=== PATIENT | female | born 1945 | race Caucasian/White ===

== ENCOUNTER 2016-11-13 13:20 | Outpatient (CLI) | payer MEDICARE ==
--- NOTE | 2016-11-13 15:39 | DIAGNOSTIC IMAGING REPORT ---
PROCEDURE: CT ABDOMEN/PELVIS W/O CONTRAST INDICATION: PELVIC PAIN TECHNIQUE: Noncontrast axial images were obtained of the entire abdomen and pelvis with sagittal and coronal reformations. COMPARISON: None. FINDINGS: ABDOMEN: Minor bibasilar dependent atelectasis. Heart size is normal. Hepatic steatosis. Cholecystectomy. Pancreas, spleen and adrenal glands are normal. Bilateral perinephric stranding. No calculi or hydronephrosis. Mild atherosclerosis of the aorta. Mild descending colon diverticulosis. PELVIS: Severe sigmoid diverticulosis with two areas of adjacent stranding in the mid and distal portion of the sigmoid colon consistent with two foci of diverticulitis. There is no abscess or free air. Midline ventral herniorrhaphy. Normal appendix. Hysterectomy. Normal bladder. Surgical clips around the bladder. Right hip arthroplasty. Moderate degenerative changes of the spine. IMPRESSION: 1. Severe sigmoid diverticulosis with two foci of inflammation consistent with diverticulitis. No abscess or free air 2. Hepatic steatosis 3. Cholecystectomy. hysterectomy, bladder surgery and herniorrhaphy 4. Results discussed with FREEMAN Parnell All CT scans at this facility use dose modulation, iterative reconstruction, and/or weight-based dosing when appropriate to reduce radiation dose to as low as reasonably achievable.
== END 2016-11-13 23:00 ==
LOC: LAB SRH 13:20
DX: R10.2 Pelvic and perineal pain (principal)
CPT/HCPCS: 90074; 90100; 95059

== ENCOUNTER 2016-11-15 10:22 | Outpatient (CLI) | payer MEDICARE | END 2016-11-15 23:00 | disposition home or self-care (01) | LOC: LAB SRH 10:22 | DX: K57.92 Diverticulitis of intestine, part unspecified, without perforation or abscess without bleeding (principal) | CPT/HCPCS: 90047; 90074; 95059 ==

== ENCOUNTER 2016-11-27 15:46 | Outpatient (CLI) | payer MEDICARE ==
--- NOTE | 2016-11-27 16:55 | DIAGNOSTIC IMAGING REPORT ---
PROCEDURE: XR KNEE 3 VIEWS - RIGHT INDICATION: DIVERTICULITIS, ESSENTIAL HYPERTENSION TECHNIQUE: Three views. COMPARISON: None. FINDINGS: Osseous structures and joint spaces are normal. IMPRESSION: 1. Normal right knee.
== END 2016-11-27 23:00 | disposition home or self-care (01) ==
LOC: XR SRH 15:46
DX: I10 Essential (primary) hypertension (principal); K57.92 Diverticulitis of intestine, part unspecified, without perforation or abscess without bleeding